=== PATIENT | female | born 1965 | race Hispanic/Latino ===

== ENCOUNTER 2022-01-03 00:18 | Emergency (ER) | payer OTHER ==
[2022-01-03] MEDS ORDERED: IBUPROFEN 800 MG TAB PO ONE (08:06)
--- NOTE | 2022-01-03 08:29 | Emergency Department Report ---
ED Lower Extremity HPI - General Chief Complaint: Extremity Injury, Lower Stated Complaint: FELL ON KNEE AT WORK Time Seen by Provider: 01/03/22 08:03 Source: patient Mode of arrival: Ambulatory Limitations: No Limitations - History of Present Illness Initial Comments: Patient is a 56-year-old obese female that comes to the emergency room after falling at work. She states that she lost her balance and fell landing on her right knee. She is complaining of right knee pain patient has ecchymosis of the knee. She can walk but is limited by pain. She states that the ice has helped relieve some of the pain. She denies any hip or ankle pain. Fall was mechanical. It was witnessed. There was no prolonged downtime. MD Complaint: knee injury -: Sudden, hour(s) Injury: Knee: Right Type of Injury: blunt Place: work Severity: moderate Severity scale (0 -10): 5 Worsens With: weight bearing Context: fall - Related Data Previous Rx's Medication Instructions Recorded Last Taken Type Ibuprofen [Motrin] 800 mg PO Q8HR PRN #30 tablet 01/03/22 Unknown Rx Allergies Allergy/AdvReac Type Severity Reaction Status Date / Time No Known Allergies Allergy Unverified 01/03/22 00:36 ED Review of Systems ROS: Stated complaint: FELL ON KNEE AT WORK Other details as noted in HPI Comment: All other systems reviewed and negative ED Past Medical Hx - Past Medical History Previous Medical History?: Yes Additional medical history: Obesity - Surgical History Past Surgical History?: No - Family History Family history: no significant - Social History Smoking Status: Never Smoker Substance Use Type: Alcohol - Medications Home Medications: Home Medications Medication Instructions Recorded Confirmed Last Taken Type Ibuprofen [Motrin] 800 mg PO Q8HR PRN #30 tablet 01/03/22 Unknown Rx ED Physical Exam - General Limitations: No Limitations General appearance: alert, in no apparent distress - Head Head exam: Present: atraumatic, normocephalic - Eye Eye exam: Present: normal appearance - ENT ENT exam: Present: mucous membranes moist - Neck Neck exam: Present: normal inspection - Respiratory Respiratory exam: Present: normal lung sounds bilaterally. Absent: respiratory distress - Cardiovascular Cardiovascular Exam: Present: regular rate, normal rhythm. Absent: systolic murmur, diastolic murmur, rubs, gallop - GI/Abdominal GI/Abdominal exam: Present: soft, normal bowel sounds - Extremities Exam Extremities exam: Present: normal inspection - Expanded Lower Extremity Exam Right Upper Leg exam: Present: normal inspection Knee exam: Present: full ROM, tenderness, swelling, ecchymosis. Absent: abrasion, laceration, deformity, crepidus, dislocation, erythema Lower Leg exam: Present: normal inspection - Back Exam Back exam: Present: normal inspection - Neurological Exam Neurological exam: Present: alert, oriented X3 - Psychiatric Psychiatric exam: Present: normal affect, normal mood - Skin Skin exam: Present: warm, dry, intact, normal color. Absent: rash ED Course Vital Signs 01/03/22 01/03/22 00:38 11:02 Temperature 97.7 F 98.6 F Pulse Rate 71 88 Respiratory 16 16 Rate Blood Pressure 119/96 Blood Pressure 134/89 [Left] O2 Sat by Pulse 100 99 Oximetry ED Lower Extremity MDM - Radiology Data Radiology results: report reviewed, image reviewed See report - Medical Decision Making Vital Signs 01/03/22 00:38 Temperature 97.7 F Pulse Rate 71 Respiratory 16 Rate Blood Pressure 119/96 O2 Sat by Pulse 100 Oximetry X-ray noted. Patient patient has full range of motion of the knee. She can extend and she can flex. Her distal circulation is intact. Foot is warm. DP and PT +2 bilaterally. Patient has ecchymosis of the knee. She is morbidly obese and assessment of effusion is limited by her body habitus. She can walk but she is limited by pain. I am going to immobilize her knee and place her on crutches. She will need to follow-up with orthopedics to be sure that the swelling and ecchymosis resolves and that there is not an underlying effusion or ligamentous injury. Patient was medicated with Motrin for pain. She reported some relief: She thinks that the ice helped more than the Motrin. Patient being discharged home with discharge plan of care which includes nonweightbearing status, diet, medications and orthopedic follow-up. She verbalizes understanding of plan of care. - Differential Diagnosis Patellar fracture, soft tissue injury, contusion, ligamentous injury Critical care attestation.: If time is entered above; I have spent that time in minutes in the direct care of this critically ill patient, excluding procedure time. ED Disposition Clinical Impression: Fall Qualifiers: Encounter type: initial encounter Qualified Code(s): W19.XXXA - Unspecified fall, initial encounter Knee contusion Qualifiers: Encounter type: initial encounter Laterality: right Qualified Code(s): S80.01XA - Contusion of right knee, initial encounter Disposition: HOME / SELF CARE / HOMELESS Is pt being admited?: No Does the pt Need Aspirin: No Condition: Stable Instructions: Contusion, [id number] Additional Instructions: Keep your knee immobilizer and use crutches as we discussed. This will allow time for the swelling to resolve. The immobilizer should only be removed for bathing. Use caution with crutches so that she do not fall. Ice compresses will help alleviate the pain and swelling. [id number] Motrin or Tylenol can be used for pain. Follow-up with orthopedics in 48 hours for reevaluation. The need to make sure that the swelling resolves and that there is not underlying injury. Although your x-ray was normal today there are injuries that can occur that are not obvious on x-ray. If the swelling continues you may require additional imaging by the orthopedic doctor. Rest ice and elevate your leg. Prescriptions: Ibuprofen [Motrin] 800 mg PO Q8HR PRN #30 tablet PRN Reason: Pain, Moderate (4-6) Referrals: BERNICE CULP MD [Staff Physician] - 3-5 Days Forms: Work/School Release Form(ED) Time of Disposition: 09:12
--- NOTE | 2022-01-03 08:57 | XRay Report ---
Right knee 3 views INDICATION: Fall IMPRESSION: Tricompartmental degenerative change with joint space narrowing throughout most significa nt at patellofemoral joint medial joint compartment. Diffuse soft tissue swelling is seen. Signer Name: Manoj Pierce MD Signed: 01/03/2022 8:53 AM Workstation Name: [id number]
[2022-01-03 11:04] VITALS: BP 134/89
== END 2022-01-03 11:02 | disposition home or self-care (01) ==
LOC: ED 00:18
DX: S80.01XA Contusion of right knee, initial encounter (principal); W19.XXXA Unspecified fall, initial encounter; Y93.89 Activity, other specified; Y92.89 Other specified places as the place of occurrence of the external cause; Y99.8 Other external cause status
CPT/HCPCS: 99283